=== PATIENT | male | born 1955 | race Caucasian/White ===

== ENCOUNTER → 2016-09-26 | Outpatient (CLI) | payer OTHER ==
[~2016-09-26] MED LIST: IBUPROFEN 800800 M1 PO; MEDROLDOSEPACK PO; OXYCODONE HCL 55 MG PO; OXYCONTIN10 M1 PO; PRILOSEC 20 MG20 MG PO
== END ==
LOC: RAD 15:10
DX: M79.671 Pain in right foot (principal); M10.9 Gout, unspecified